=== PATIENT | male | born 2000 | race African-American/Black ===

== ENCOUNTER 2020-09-10 10:50 | Emergency (ER) | payer SELFPAY ==
[2020-09-10] MEDS ORDERED: Sodium Chloride 0.9% 1,000 ML ONE (11:26)
[2020-09-10] MEDS ORDERED: Ondansetron PF 4 MG/2 ML Vial ONE (11:26)
[2020-09-10 14:30] LABS: %Lymphocytes 11.8 % (21.0-51.0); %Monocytes 6.9 % (0.0-10.0); %Neutrophils 80.2 % (42.0-75.0); Hemoglobin 15.5 g/dL (14.0-18.0); Mean Corpuscular HGB CONC 31.7 g/dL (32.0-36.0); Mean Corpuscular Hemoglobin 28.1 pg (27.0-31.0); Mean Corpuscular Volume 88.5 fL (78.0-98.0); Mean Platelet Volume 10.3 fL (7.4-10.4); Platelet Count 223 thou/uL (130-400); Red Blood Cell (RBC) Count 5.54 mill/uL (4.70-6.10); White Blood Cell (WBC) Count 8.8 thou/uL (4.8-10.8)
[2020-09-10 14:31] LABS: %Eosinophils 0.4 % (0.0-10.0)
[2020-09-10 14:32] LABS: #Basophils 0.1 thou/uL (0.0-0.2); #Monocytes 0.6 thou/uL (0.11-0.59); #Neutrophils 7.1 thou/uL (1.40-6.50); %Basophils 0.7 % (0.0-1.0)
[2020-09-10 14:34] LABS: Anion Gap 13 mmol/L (10-20); BUN (Urea Nitrogen) 10 mg/dL (8.9-20.6); Carbon Dioxide 27 mmol/L (22-29); Chloride 106 mmol/L (98-107); Potassium 4.2 mmol/L (3.5-5.1); Sodium 142 mmol/L (136-145)
[2020-09-10 14:35] LABS: Calc. Creatinine Clearance 0 mL/min (70-130)
[2020-09-10 14:36] LABS: Glucose 92 mg/dL (70-105)
[2020-09-10 14:37] LABS: ALT (SGPT) 120 U/L (8-55); AST (SGOT) 60 U/L (5-34); Albumin 4.2 g/dL (3.5-5.0); Alkaline Phosphatase 76 U/L (40-110); Bilirubin, Total 0.7 mg/dL (0.2-1.2); Globulin 3.1 g/dL (2.4-3.5); Lipase 23 U/L (8-78); Protein, Total 7.3 g/dL (6.0-8.3)
== END 2020-09-10 15:17 | disposition home or self-care (01) ==
LOC: MADERS 14:21
DX: R11.2 Nausea with vomiting, unspecified (principal); R19.7 Diarrhea, unspecified; R51.9 Headache, unspecified
CPT/HCPCS: 80053; 83690; 85025; 99283; J2405; J7050

== ENCOUNTER 2020-12-31 20:36 | Emergency (ER) | payer SELFPAY ==
[2020-12-31] MEDS ORDERED: Ibuprofen 800 MG TAB ONE (21:10)
[2020-12-31] MEDS ORDERED: Ondansetron ODT 4 MG TAB ONE (21:10)
[2021-01-01 16:32] LABS: SARS-CoV-2 PCR by NAA Not Detected (NotDetected)
== END 2020-12-31 21:22 | disposition home or self-care (01) ==
LOC: MADERS 20:36
DX: B34.9 Viral infection, unspecified (principal); Z20.822 Contact with and (suspected) exposure to COVID-19; F17.210 Nicotine dependence, cigarettes, uncomplicated
CPT/HCPCS: 99406; Q0162; U0003; U0005

== ENCOUNTER 2022-07-09 15:23 | Emergency (ER) | payer SELFPAY ==
[2022-07-09] MEDS ORDERED: Ondansetron ODT 4 MG TAB ONE (15:47)
== END 2022-07-09 16:16 | disposition home or self-care (01) ==
LOC: MADERS 15:23
DX: A05.9 Bacterial foodborne intoxication, unspecified (principal); Z87.891 Personal history of nicotine dependence
CPT/HCPCS: 99283; Q0162